=== PATIENT | male | born 1955 | race American Indian/Alaskan Native ===

== ENCOUNTER 2016-07-03 10:38 | Emergency (ER) | payer BC ==
[2016-07-03 10:58] VITALS: BMI 28.5
[2016-07-03 11:00] VITALS: BP 129/87; PULSE 70; RESP 18; TEMP 98.1; O2SAT 98
[2016-07-03] MEDS ORDERED: Lidocaine 1% Inj (20ml) ONE (12:18)
--- NOTE | 2016-07-03 12:28 | ED PDOC ---
Upper Extremity Pain/Injury Time Seen by Provider: 07/03/16 12:20 Chief Complaint (Nursing): Finger,Hand,&Wrist Chief Complaint (Provider): Laceration History Per: Patient History/Exam Limitations: no limitations Onset/Duration Of Symptoms: Hrs (x4 hours) Current Symptoms Are (Timing): Still Present Additional Complaint(s): 60 y/o male who presents to the emergency department with a complaint of a right wrist injury after he held onto a broken suitcase which created a laceration around 8:30 this morning. Denies numbness or tingling of the right hand or wrist. Tetanus shot not up to date. Past Medical History Reviewed: Historical Data, Nursing Documentation, Vital Signs Vital Signs: Last Vital Signs Temp 98.1 F 07/03/16 10:58 Pulse 70 07/03/16 10:58 Resp 18 07/03/16 10:58 BP 129/87 07/03/16 10:58 Pulse Ox 98 07/03/16 10:58 - Medical History PMH: HTN - Surgical History Surgical History: No Surg Hx - Family History Family History: States: Unknown Family Hx - Social History Current smoker - smoking cessation education provided: No Alcohol: None Drugs: Denies - Immunization History Hx Tetanus Toxoid Vaccination: No - Allergies Allergies/Adverse Reactions: Allergies Allergy/AdvReac Type Severity Reaction Status Date / Time No Known Allergies Allergy Verified 07/03/16 10:58 Review of Systems ROS Statement: Except As Marked, All Systems Reviewed And Found Negative Skin: Positive for: Other (Laceration located on the right wrist. Denies numbness or tingling of the area. ) Physical Exam - Reviewed Nursing Documentation Reviewed: Yes Vital Signs Reviewed: Yes - Physical Exam Appears: Positive for: Non-toxic, No Acute Distress Head Exam: Positive for: ATRAUMATIC, NORMOCEPHALIC Skin: Positive for: Normal Color, Warm, Dry Extremity: Positive for: Normal ROM (Full ROM of the right hand and wrist), Other (2cm laceration at the start of the ulnar. ). Negative for: Tenderness, Deformity, Swelling Neurologic/Psych: Positive for: Alert, Oriented - ECG O2 Sat by Pulse Oximetry: 98 (RA) Pulse Ox Interpretation: Normal Medical Decision Making Medical Decision Making: Time: 12:20 Initial impression: Skin Laceration Initial plan: --TDAP Vaccine 0.5 mL IM --Cleanse the laceration with normal saline and betadine. --Numb the area with Lidocaine 1% (20 ml) 10 mL IJ --Suture with stitches Time: 13:10 --Patient was given proper instructions and was told to visit referred MD or to return back to the ER after wound has healed in order to remove stitches. Upon provider reevaluation patient is medically stable, and requires no further treatment in the ED at this time. Patient will be discharged home. Counseling was provided and all questions were answered regarding diagnosis and need for follow up with Kyle Lynch MD. There is agreement to discharge plan. Return if symptoms persist or worsen. Clinical Impression: Skin Laceration Scribe Attestation: Documented by Allison Bautista, acting as a scribe for Maryann Whitaker PA-C. Provider Scribe Attestation: All medical record entries made by the Scribe were at my direction and personally dictated by me. I have reviewed the chart and agree that the record accurately reflects my personal performance of the history, physical exam, medical decision making, and the department course for this patient. I have also personally directed, reviewed, and agree with the discharge instructions and disposition. Procedures - Laceration/Wound Repair Laceration repair Wound Length (cm): 2 (Laceration starts at the ulnar of the right wrist) Wound's Depth, Shape: linear (Partial thickness) Wound Explored: no foreign body removed Anesthesia: 1% Lidocaine ( 3cc's of 10 mL injection) Wound Debrided: No debridement necessary Wound Repaired With: Sutures (5 stitches in total) Suture Size/Type: 4:0, nylon Number of Sutures: 5 Layer Closure?: No Wound Complexity: Simple Sterile Dressing Applied?: Yes (irrigated with normal 250 mL saline and betadine ) Splint Applied?: Yes Disposition - Clinical Impression Clinical Impression: Laceration - Patient ED Disposition Is Patient to be Admitted: No Counseled Patient/Family Regarding: Studies Performed - Disposition Referrals: Kyle Lynch MD [Medical Doctor] - Disposition: Routine/Home Disposition Time: 13:10 Condition: GOOD Additional Instructions: keep wound dry, do not wet keep splint on for at least 3-4 days to prevent moving wrist, otherwise wound will open return in 8-10 days Instructions: Care For Your Stitches (ED), Laceration (ED) Forms: [facility] ED School/Work Excuse
[2016-07-03] MEDS ORDERED: Lidocaine 1% Inj (20ml) IJ STA (12:30)
[2016-07-03] MEDS ORDERED: TDAP Vaccine 0.5 mL Syr IM ONE (13:03)
== END 2016-07-03 13:34 | disposition home or self-care (01) ==
LOC: H.ER 10:38
DX: S61.411A Laceration without foreign body of right hand, initial encounter (principal); W22.8XXA Striking against or struck by other objects, initial encounter; Y92.89 Other specified places as the place of occurrence of the external cause